=== PATIENT | male | born 1935 | race Caucasian/White ===

== ENCOUNTER 2021-11-11 07:11 | Emergency (ER) | payer OTHER ==
[2021-11-11] MEDS ORDERED: KENALOG 0.5% CR15 GM TOP (07:52)
[2021-11-11] MEDS ORDERED: PREDNISONE 20 M20 MG PO (07:52)
== END 2021-11-11 08:03 | disposition home or self-care (01) ==
LOC: ER1 07:11
DX: L50.1 Idiopathic urticaria (principal)
CPT/HCPCS: 99282